=== PATIENT | male | born 1980 | race Caucasian/White ===

== ENCOUNTER → 2022-06-18 07:13 | Outpatient (CLI) | payer OTHER, SELFPAY ==
--- NOTE | ~2022-06-18 | XR_ITS ---
EXAMINATION: XR tibia fibula RT 2V INDICATION: Right leg pain TECHNIQUE: Two views of the right tibia and fibula are obtained on four radiographs. COMPARISON: None available FINDINGS: There is mild soft tissue swelling overlying the distal tibia. There is no fracture. Alignm ent at the ankle and knee is normal. IMPRESSION: 1. No acute osseous abnormality. Reviewed, dictated and finalized at location A.
== END ==
PROVIDERS: PCP Family Medicine; Visit Provider Chiropractor Rehabilitation
DX: M79.661 Pain in right lower leg (principal)
CPT/HCPCS: 73590

== ENCOUNTER 2022-10-02 10:21 | Emergency (ER) | payer OTHER, SELFPAY ==
[2022-10-02 10:42] VITALS: BP 130/96; PULSE 66; RESP 16; TEMP 37.1; O2SAT 99
--- NOTE | 2022-10-02 11:25 | ED.GENADULT ---
HPI - General Adult General Chief complaint: Upper Respiratory Infection Stated complaint: Fever, Fatique Source: patient Mode of arrival: ambulatory Limitations: no limitations History of Present Illness HPI narrative: Patient presents for evaluation of sick symptoms for last 2 days. Symptoms include fever, chills, sweating, body aches, sinus congestion, headache, scratchy throat, cough, nausea and fatigue. No vomiting or diarrhea. No recent sick contacts to his knowledge. He to go home COVID test which was negative. He did receive a flu shot this year. He is concerned about his ability to attend a work related function early next week. He has been taking Tylenol which seems to be helping his symptoms. He does not smoke. No additional complaints or concerns. Related Data Home Medications Medication Instructions Recorded Confirmed pregabalin 75 mg capsule 75 mg PO BID 03/16/21 10/02/22 Allergies Allergy/AdvReac Type Severity Reaction Status Date / Time No Known Allergies Allergy Mild Verified 10/02/22 10:34 Review of Systems Review of Systems: CONSTITUTIONAL: reports fever, chills, sweats, Fatigue. EYES: Denies visual changes, redness, or discharge. ENT: Reports sinus congestion and scratchy throat. CARDIOVASCULAR: Denies chest pain, palpitations, or edema. RESPIRATORY: Reports cough. Denies SOB GASTROINTESTINAL: Reports nausea. Denies abdominal pain, vomiting, or diarrhea. GENITOURINARY: Denies dysuria or hematuria. SKIN: Denies rash or itching. MUSCULOSKELETAL: Reports generalized body aches NEUROLOGIC: Reports headache. Denies numbness, dizziness, or weakness. PSYCHIATRIC: Denies anxiety or depression. REPLACED BY [facility] Past Medical History Medical History (Updated 10/02/22 @ 12:03 by MARCOS Nicole, FRANCESCO) Anxiety Migraine Surgical History Surgical History No pertinent past surgical history Family History Family History Mother Depression Hypertension Father Family history of type 1 diabetes mellitus Other Asthma Diabetes mellitus Family history of arthritis Family history of cardiovascular disease Family history of malignant neoplasm HLD (hyperlipidemia) Heart disease Social History Social History Smoking status: Never smoker Second hand tobacco smoke exposure: No Alcohol intake: current Alcohol use details: social drinker, whiskey or beer Substance use: never Substance use type: does not use 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 HEAD: Normocephalic, atraumatic. EYES: PERRLA and EOMI. ENT: Nares clear, no rhinorrhea or epistaxis. Mucous membranes moist. Oropharynx without tonsillar hypertrophy exudate or other lesions. There is posterior pharyngeal erythema. Bilateral TMs pearly stafford nonbulging NECK: Supple. No adenopathy or masses. No carotid bruits or JVD CHEST: Clear to auscultation. No respiratory distress. No wheezes rales or rhonchi HEART: Regular rate and rhythm. No murmur heard. Normal peripheral pulses. ABDOMEN: Soft, nontender, nondistended, normal active bowel sounds. EXTREMITIES: Normal range of motion. No edema. SKIN: Warm, dry, no rash. NEURO: No focal deficits. Alert and oriented x3. PSYCH: Normal mood and affect. Course Course Emergency Course: this is a 42-year-old male who presented for evaluation of sick symptoms. He taking it COVID test at home which was negative. Flu testing was negative as well. His exam this compatible with acute viral syndrome. Ibuprofen will help with aches and pains. Continue Tylenol as needed. Add Mucinex DM. Increase hydration. Fol
== END 2022-10-02 12:07 | disposition home or self-care (01) ==
PROVIDERS: Emergency Provider Nurse Practitioner; PCP Family Medicine
DX: B34.9 Viral infection, unspecified (principal)
CPT/HCPCS: 87804; 99213; G0463

== ENCOUNTER 2023-10-06 02:03 | Day surgery (SDC) | payer OTHER, SELFPAY ==
[2023-10-04 12:22] VITALS: BMI 23.8
--- NOTE | 2023-10-04 12:30 | PC.NURSE ---
Report to the Outpatient Waiting Room, entrance under the green pavilion located off [facility], at time _1000_ on date _[id number]_. Planned Procedure Time: _1200_. Time changes happen often and if your time is changed the preop area will call you the afternoon before. - You and your visitor will be asked to self-screen and do not enter if you have any COVID symptoms. - A mask is optional within the hospital at this time. Patients may have clear liquids (water, carbonated beverages, clear teas, apple juice) until 3 hours prior to surgery with a maximum of 20 ounces. - No food from midnight until time of surgery Take the following medications with a SIP of water the morning of surgery: __Clonazepam if needed. DO NOT STOP ANY OF YOUR OTHER PRESCRIPTION MEDICATIONS PRIOR TO SURGERY ?EXCEPT THE FOLLOWING Medications to discontinue per physician None Date to take last dose Please no make-up, nail maltese, hairspray, perfume, deodorant, or body powder the day of surgery. No jewelry (including any body piercings) or valuables the day of surgery, leave them at home. Please take a shower or bath the night before, or the morning of, surgery with an antibacterial soap. Wear comfortable, loose fitting clothing. - Jewelry must be removed prior to entering the operating room. Rings and piercings that are not removed may be cut off. - The hospital will not accept responsibility for valuables. - Please leave all valuables, including medications, at home the day of surgery. If you are going home after surgery, a licensed non emergency services ambulance driver must drive you home. - NO public transportation without another adult if you receive anesthesia. - We recommend that an adult stay with you for 24 hours following discharge. - We also recommend that you do not drive, make important decision, drink alcoholic beverages, or take any drugs that were not prescribed by your health care provider for at least 24 hours after your discharge time. Follow any additional instructions given to you from your surgeon. If you or anyone in your household have experienced Covid symptoms in the past week, please notify your surgeon or the nurse liaison at the phone number below for possible testing. Telephone instructions given to _Nathaniel__and asked if any additional questions and then verbalized understanding. Patient advised to call surgeon office or pre surgery nurse liaison [phone] if any additional questions.
--- NOTE | 2023-10-05 12:59 | PM.IMHP ---
H&P: HPI History of Present Illness Date/Time: 10/05/23 12:59 Chief Complaint: Left elbow pain Narrative: 43-year-old with chronic left elbow pain. Unrelieved with injections, therapy, activity modification and medication. MRI shows lateral tendinitis and tendon tear. Presents now for operative treatment. Review of Systems Constitutional: Constitutional: Denies fever(s) Eyes: Eyes: Denies blurry vision ENT: Reports Normal hearing present Cardiovascular: Cardiovascular: Denies chest pain and Denies dyspnea Respiratory: Respiratory: Denies dyspnea and Denies wheezing Gastrointestinal: Gastrointestinal: Denies abdominal pain Genitourinary: Genitourinary: Denies urinary urgency Musculoskeletal: Musculoskeletal: Reports as per HPI and Denies numbness Integumentary/Breasts: Skin/Breast: Denies changing lesions and Denies sores Neurologic: Reports Normal hearing present, Denies behavioral changes, Denies confusion, Denies numbness and Denies convulsions Psychiatric: Psychiatric: Denies behavioral changes, Denies confusion and Denies hallucinations Endocrine: Endocrine: Denies heat intolerance Hematologic/Lymphatic: Hematologic/Lymphatic: Denies easy bleeding Allergic/Immunologic: Allergic/Immunologic: Denies wheezing PMFSH Past Medical History Medical History Anxiety Migraine Surgical History Surgical History No pertinent past surgical history Family History Family History Mother Depression Hypertension Father Family history of type 1 diabetes mellitus Other Asthma Diabetes mellitus Family history of arthritis Family history of cardiovascular disease Family history of malignant neoplasm HLD (hyperlipidemia) Heart disease Social History Social History Smoking status: Never smoker Second hand tobacco smoke exposure: No Alcohol intake: current Drinks per week: 10 Alcohol use details: social drinker, whiskey or beer Substance use: never Substance use type: does not use Lack of Transportation: No Lack of Food: Never True Current Housing: I Have Housing Concerned About Future Housing: No Difficulty Paying Gas/Electric Bills: No Difficulty Paying for Meds: No Currently Unemployed: No Education: Decline to Answer Difficulty w/ Childcare or Family Care: No Living arrangements: with family Occupation/Education: occupation 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 [employer] Gender identity (if verbalized by the patient): Male Spiritual care concerns: No Meds Home Medications and Allergies Home Medications Medication Instructions Recorded Confirmed Type escitalopram oxalate 10 mg tablet See Rx Instructions .Route 11/02/22 10/04/23 Rx .COMPLEX #90 tabs atogepant 60 mg tablet (Qulipta) 60 mg PO HS 04/11/23 10/04/23 History clonazepam 0.5 mg tablet 0.5 mg PO BID anxiety #60 tabs 05/16/23 10/04/23 Rx Allergies Allergy/AdvReac Type Severity Reaction Status Date / Time No Known Allergies Allergy Mild Verified 10/04/23 12:21 Exam Const: General: healthy appearing; No in distress or confusion Orientation/consciousness: oriented to person, oriented to place, oriented to time and No confusion Eyes: Conjunctivae: conjunctivae normal Sclera: sclerae normal Neck: Neck: supple and nontender Resp: Effort & Inspection: normal respiratory effort and no audible wheezes Cardio: Rate: regular rate Rhythm: regular rhythm Skin: General skin exam: no rashes or lesions noted Neuro: General: oriented to person, oriented to place, oriented to time and No confusion Extrem: Right upper extremity: shoulder/upper arm axillary nerve sensory function normal, normal ROM (FF 130, Abd 120, ER 70,
[2023-10-06] VITALS (7 sets, daily range): BP systolic 122–129; BP diastolic 71–93; PULSE 46–62; RESP 12–20; TEMP 36.2–36.3; O2SAT 100
[2023-10-06] MEDS: ACETAMINOPHEN 500 MG TABLET 1000 MG PO (10:32)
[2023-10-06] MEDS: LACTATED RINGERS 1,000 ML 30 ML IV CONT (10:59)
[2023-10-06] MEDS: KETOROLAC 15 MG/ML VIAL (*BKC) IV PUSH (11:01)
--- NOTE | 2023-10-06 11:26 | WPDANESEPPF ---
Anes - Initial Pre Proc Eval Procedure: Operation Date: 10/06/23 12:00 Proposed Procedures p Left Elbow Lateral Release, Possible Extensor Tendon Repair - Kasi Francisco MD Date/Time: 10/06/23 11:26 Surgeon: Kasi Francisco MD Pre Op Diagnosis: Left Elbow Lateral Epicondylitis, (cont) Patient Data Age: 43 Gender: M Height: 1.88 m Weight: 86.2 kg Last Vital Signs Temp 97.1 F L 10/06/23 10:27 Pulse 46 L 10/06/23 10:27 Resp 16 10/06/23 10:27 BP 129/93 H 10/06/23 10:27 Pulse Ox 100 10/06/23 10:27 O2 Del Method Room Air 10/06/23 10:27 Allergies Allergy/AdvReac Type Severity Reaction Status Date / Time No Known Allergies Allergy Mild Verified 10/06/23 10:31 Home Medications Medication Instructions Recorded Confirmed Type escitalopram oxalate 10 mg tablet See Rx Instructions .Route 11/02/22 10/04/23 Rx .COMPLEX #90 tabs atogepant 60 mg tablet (Qulipta) 60 mg PO HS 04/11/23 10/04/23 History clonazepam 0.5 mg tablet 0.5 mg PO BID anxiety #60 tabs 05/16/23 10/04/23 Rx Patient hx anesthesia problems: none Family hx anesthesia problems: none Results Review: All pre-operative results and documents have been reviewed as part of the pre-operative evaluation. [facility] Past Medical History Medical History Anxiety Migraine Surgical History Surgical History No pertinent past surgical history Family History Family History Mother Depression Hypertension Father Family history of type 1 diabetes mellitus Other Asthma Diabetes mellitus Family history of arthritis Family history of cardiovascular disease Family history of malignant neoplasm HLD (hyperlipidemia) Heart disease Social History Social History Smoking status: Never smoker Second hand tobacco smoke exposure: No Alcohol intake: current Drinks per week: 10 Alcohol use details: social drinker, whiskey or beer Substance use: never Substance use type: does not use Lack of Transportation: No Lack of Food: Never True Current Housing: I Have Housing Concerned About Future Housing: No Difficulty Paying Gas/Electric Bills: No Difficulty Paying for Meds: No Currently Unemployed: No Education: Decline to Answer Difficulty w/ Childcare or Family Care: No Living arrangements: with family Occupation/Education: occupation 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 Informed Consent: The patient's anesthetic plan and its attendant risks and benefits were discussed with the patient/family/POA. Questions were solicited and answers provided to the satisfaction of the patient/family/POA.
--- NOTE | 2023-10-06 11:45 | WPDHPUPDATE1 ---
History and Physical Update Update Date/Time: 10/06/23 11:45 History and Physical has been reviewed, including an updated exam of the patient. There are NO changes in the patient's condition. Risks, benefits, and alternatives have been discussed and questions answered. Patient agrees to proceed with procedure.
[2023-10-06] MEDS: ceFAZolin 2 GM/D5W 50 ML 2 GM/50 ML BAG IVPB (11:54)
[2023-10-06] MEDS: BUPivacaine HCL 0.5% 10 ML AMP 20 ML INFILTRATE (12:17)
--- NOTE | 2023-10-06 13:02 | W.PM.PROC2 ---
Procedure Note - Detailed Date of Procedure 10/06/23 Pre-op Diagnosis Left Elbow Lateral Epicondylitis, (cont) Post-op Diagnosis Same Procedure Performed Left elbow lateral epicondylitis release. 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 Unrelieved multiple cortisone injections, therapy, home stretching, elbow strap and activity modification. Presents for operative treatment. Findings Degenerative changes of the lateral elbow and tendon. No tendon tear noted. Description of Procedure Patient identified in the preoperative holding. Informed consent given. Operative extremity marked. Patient received intravenous antibiotics. Patient brought to the operating room where underwent general anesthetic by anesthesia team. Positioned supine on operating room table. Time-out performed confirming the patient, site of the surgery and the plan. Left elbow prepped draped usual sterile surgical fashion using a ChloraPrep skin solution. Hand and arm exsanguinated and proximal arm tourniquet inflated to 250 mmHg. Local anesthetic 0.5% Marcaine plain. Oblique incision over the lateral epicondyle with a 15 blade knife. Hemostasis controlled electrocautery. Dissection carried down to the fascia which was released in line with the skin incision. This allowed exposure of the extensor musculature over the lateral epicondyle. It was noted to be degenerative changes of the extensor musculature tendon without discrete tear. There was degenerative changes the lateral humerus with a bone spur. 15 blade knife used to sharply release the extensor tendon from the lateral epicondyle. Rongeur used to remove the bone spur and smooth the surrounding bone. Wound thoroughly irrigated saline. Hemostasis controlled electrocautery. The fascia was then repaired with 2-0 Vicryl interrupted suture. Subcutaneous tissue and skin repaired with 3-0 Monocryl suture and Steri-Strips. Tourniquet released. Sterile dressing applied. The patient was then woken from anesthesia, extubated and taken to the recovery room in stable condition. All sponge, needle, instrument counts were correct at the end of the case. Estimated Blood Loss 5 Tourniquet Time 30 Drains No Packing No Pathology None sent Complications None Condition Stable Disposition PACU [facility] Billing Surgery - Charge Forward: Surgery Billing ([id number])
== END 2023-10-06 14:37 | disposition home or self-care (01) ==
PROVIDERS: PCP Family Medicine; Visit Provider Orthopaedic Surgery
PROC: (CPT 24358; principal; 2023-10-06 12:00)
DX: M77.12 Lateral epicondylitis, left elbow (principal); F41.9 Anxiety disorder, unspecified
CPT/HCPCS: 24358; A9270; J0690; J1100; J1885; J2250; J2405; J2704; J3010; J7120

== ENCOUNTER → 2023-10-10 08:53 | Outpatient (CLI) | payer OTHER, SELFPAY ==
--- NOTE | ~2023-10-10 | XR_ITS ---
EXAMINATION: XR sacrum coccyx min 2V INDICATION: Sacrococcygeal disorders, not elsewhere classified TECHNIQUE: Three views of the sacrum and coccyx are obtained. COMPARISON: None available FINDINGS: No fracture, dislocation, or subluxation. The bones, soft tissues, and joint spaces are nor mal. IMPRESSION: 1. No acute osseous abnormality. Reviewed, dictated and finalized at location B. 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
== END ==
PROVIDERS: PCP Family Medicine; Visit Provider Family Medicine
DX: M53.3 Sacrococcygeal disorders, not elsewhere classified (principal)
CPT/HCPCS: 72220

== ENCOUNTER 2024-10-08 12:49 | Emergency (ER) | payer OTHER, SELFPAY ==
--- NOTE | ~2024-10-08 | CT_ITS ---
CT abdomen pelvis wo con Ordering provider: Blaze Bae MD History: 44 years Male with . Right flank pain, stone? . Comparison: None. Technique: CT abdomen and pelvis without IV and without oral contrast. Automated exposure control and iterative reconstruction technique were employed. The dose-length product was 432.35 mGy-cm. Findings: VISUALIZED LOWER CHEST: Dependent atelectatic changes. UPPER ABDOMINAL ORGANS: Liver: Normal. Gallbladder: Cholecystectomy. Spleen: Normal. Stomach/duodenum: Normal. Pancreas: Normal. Adrenals: Normal. Kidneys: Normal. PELVIC ORGANS: The bladder is normal. BOWEL AND MESENTERY: Colon: No evidence of diverticulitis. Fecal material is loaded in the colon suggestive of constipatio n. Normal appendix. Small Bowel: Normal. No obstruction. Peritoneum/mesentery: No free air or free fluid. No mesenteric lymphadenopathy. RETROPERITONEUM: Normal aorta. No retroperitoneal lymphadenopathy. MUSCULOSKELETAL: Superficial soft tissues: Small inguinal lymph nodes. Otherwise, The superficial soft tissues are nor mal. Bones: Normal spine. IMPRESSION: 1. No acute abdominal process with no evidence of appendicitis, diverticulitis or intestinal obstruc tion. 2. Constipation. Reviewed, dictated and finalized at location A. PING AND RECEIVING ASSISTANT IMPRESSION: 1. No acute abdominal process with no evidence of appendicitis, diverticulitis or intestinal obstruction. 2. Constipation.
[2024-10-08 12:59] VITALS: BP 157/93; PULSE 73; RESP 18; TEMP 36.9; O2SAT 100
--- NOTE | 2024-10-08 14:36 | ED_ITS ---
HPI - Abdominal Pain General Chief Complaint: Abdominal Pain <Tristan Oh PA-C - Last Filed: 10/08/24 17:53> Stated Complaint: right flank pain <Tristan Oh PA-C - Last Filed: 10/08/24 17:53> Time Seen by Provider: 10/08/24 14:35 <Tristan Oh PA-C - Last Filed: 10/08/24 17:53> Focused HPI: GENERAL: Well-appearing, well-nourished, and in no acute distress. HEAD: Normocephalic, atraumatic. CHEST: Clear to auscultation. No respiratory distress. ABD: HEART: Regular rate and rhythm. NEURO: Alert and oriented x3. Patient screened in triage and initial orders placed. Additional care and disposition to be based upon diagnostic testing and treatment. <Tristan Oh PA-C - Last Filed: 10/08/24 17:53> Focused HPI: 44-year-old male presenting with right flank pain on and off for last 2 weeks, sporadic in nature and occasion rating towards the right groin. Describes sharp waves of pain. Feels like he is urinating less frequent ly and often but denies any hematuria or discharge. No concerns for STDs. Has been taking some Advil with mild improvement in his symptoms. No fever, chills, back pain for chest pain, shortness a breath, lower abdominal pain, nausea vomiting. Was otherwise in his normal state of health bony recent injuries, illnesses. Does state that approximately 2 weeks ago he was out deer hunting and moving dear and felt the pain started the next day and felt like he might have pulled a muscle in this area. GENERAL: Well-appearing, well-nourished, and in no acute distress. HEAD: Normocephalic, atraumatic. CHEST: Clear to auscultation. No respiratory distress. ABD: HEART: Regular rate and rhythm. NEURO: Alert and oriented x3. Patient screened in triage and initial orders placed. Additional care and disposition to be based upon diagnostic testing and treatment. <Blaze Bae MD - Last Filed: 10/08/24 17:49> History of Present Illness HPI narrative: Agree with the HPI as above <Blaze Bae MD - Last Filed: 10/08/24 17:49> Related Data Home Medications: Home Medications Medication Instructions Recorded Confirmed atogepant 60 mg tablet (Qulipta) 60 mg PO HS 04/11/23 09/04/24 <Tristan Oh PA-C - Last Filed: 10/08/24 17:53> Allergies/Adverse Reactions: Allergies Allergy/AdvReac Type Severity Reaction Status Date / Time No Known Allergies Allergy Mild Verified 09/04/24 14:37 <Tristan Oh PA-C - Last Filed: 10/08/24 17:53> Review of Systems Review of Systems: reviewed above <Blaze Bae MD - Last Filed: 10/08/24 17:49> All systems reviewed & are unremarkable except as noted in HPI and below <Blaze Bae MD - Last Filed: 10/08/24 17:49> PMFSH Past Medical History Medical History: Medical History Anxiety Migraine <Tristan Oh PA-C - Last Filed: 10/08/24 17:53> Surgical History Surgical History: Surgical History No pertinent past surgical history <Tristan Oh PA-C - Last Filed: 10/08/24 17:53> Family History Family History: Family History Mother Depression Hypertension Father Family history of type 1 diabetes mellitus Other Asthma Diabetes mellitus Family history of arthritis Family history of cardiovascular disease Family history of malignant neoplasm HLD (hyperlipidemia) Heart disease <Tristan Oh PA-C - Last Filed: 10/08/24 17:53> Social History Social History: Social History Smoking status: Never smoker Second hand tobacco smoke exposure: No Alcohol intake: current Drinks per week: 10 Alcohol use details: social drinker, whiskey or beer Substance use: never Substance use type: does not use Lack of Transportation: No Lack of Food: Never True Current Housing: I Have Housing Concerned About Future Housing: No Difficulty Paying Gas/Electric Bills: No Difficulty Paying for Meds: No Currently Unemployed: No Education: Master's Degree or Higher Difficulty w/ Childcare or Family Care: No Living arrangements: with family Occupation/Education: occupation Additional occupation/education comments: [employer] at [employer] Gender identity (if verbalized by the patient): Male Spiritual care concerns: No <Tristan Oh PA-C - Last Filed: 10/08/24 17:53> Exam Narrative: GENERAL: [Well-appearing, well-nourished, and in no acute distress.] HEAD: [Normocephalic, atraumatic.] EYES: [PERRLA and EOMI.] ENT: Nares clear, no rhinorrhea or epistaxis. Mucous membranes moist. NECK: Supple. CHEST: [Clear to auscultation. No respiratory distress.] HEART: [Regular rate and rhythm]. No murmur heard. [Normal peripheral pulses.] ABDOMEN: [Soft, nondistended], [nontender], [No rigidity or guarding] EXTREMITIES: Normal range of motion. [No edema.] SKIN: Warm, dry, no rash. NEURO: [No focal deficits]. Alert and oriented [x3.] PSYCH: [Normal mood and affect.] <Blaze Bae MD - Last Filed: 10/08/24 17:49> Course Vital Signs Vital signs: Vital Signs Temperature 98.4 F 10/08/24 12:59 Pulse Rate 73 10/08/24 12:59 Respiratory Rate 18 10/08/24 12:59 Blood Pressure 157/93 H 10/08/24 12:59 Pulse Oximetry 100 10/08/24 12:59 Temperature 98.1 F 10/08/24 15:47 Pulse Rate 56 L 10/08/24 17:22 Respiratory Rate 15 10/08/24 17:22 Blood Pressure 140/86 10/08/24 17:22 Pulse Oximetry 100 10/08/24 17:22 Oxygen Delivery Room Air 10/08/24 16:17 <FLOR Pryor Last Filed: 10/08/24 17:53> Vital Signs Temperature 98.4 F 10/08/24 12:59 Pulse Rate 73 10/08/24 12:59 Respiratory Rate 18 10/08/24 12:59 Blood Pressure 157/93 H 10/08/24 12:59 Pulse Oximetry 100 10/08/24 12:59 Temperature 98.1 F 10/08/24 15:47 Pulse Rate 56 L 10/08/24 17:22 Respiratory Rate 15 10/08/24 17:22 Blood Pressure 140/86 10/08/24 17:22 Pulse Oximetry 100 10/08/24 17:22 Oxygen Delivery Room Air 10/08/24 16:17 <Blaze Bae MD - Last Filed: 10/08/24 17:49> MDM - Abdominal Pain MDM Narrative Medical decision making narrative: 44-year-old otherwise healthy male presenting to the emergency depart with right flank pain intermittent for last 2 weeks. He thought he might have pulled a muscle wall moving deer while hunting 2 weeks ago. Has been having some intermittent sharp pain in this area radiating towards his right upper flank towards his right groin. Denies any history kidney stones. Has been taking some Advil with improvement in symptoms. Knows that he has not been urinating as frequently but denies any hematuria, dysuria, concerns for STDs or any discharge. Reassuring vital signs without any significant blood pressure concerns, no tachycardia, fever, hypoxia. Overall very well-appearing with reassuring examination without any tenderness in the abdomen, pelvis, flank. Negative Duncan sign. Given patient's vague complaints and of right-sided flank pain as well as the potential urinating issues going this frequently considerations presently for a kidney stone versus renal colic versus less likely urinary tract or kidney infection. Musculoskeletal strain is more likely given the onset of symptoms after moving heavy deer. workup was ordered incl uding a CBC, CMP, urinalysis and a CT scan without contrast. He was given symptomatic control with a dose of 0.5 mg Dilaudid, Zofran and fluid bolus. Workup revealed no leukocytosis or significant anemia. Normal platelets. Normal electrolyte profile, normal renal function panel. Total bilirubin very mildly elevated but otherwise unremarkable LFTs. Urinalysis without any signs of infection or blood. CT scan was independently reviewed by myself and also interpreted by Radiology. No acute intra-abdominal process such as appendicitis diverticulitis or any obstruction. No kidney stones were identified. He does have some constipation but likely not contributing to his symptoms. Patient was re-evaluated had complete symptomatic resolution will here in the emergency department. At this point given his unremarkable workup and symptom resolution I believe he can be safely discharged home with outpatient follow-up. Will send home with a short course of Toradol for any remaining pain and was given return precautions which patient verbalized understanding. Stable for discharge. <Blaze Bae MD - Last Filed: 10/08/24 17:49> Differential Diagnosis Differential diagnosis: Likely abdominal pain, acute appendicitis, calculus of kidney, constipation, diverticulitis, gastroenteritis, pancreatitis and small bowel obstruction <Blaze Bae MD - Last Filed: 10/08/24 17:49> Medical Records Attestation: I reviewed the patient's medical records. <Blaze Bae MD - Last Filed: 10/08/24 17:49> Lab Data Attestation: I reviewed the patient's lab results. <Blaze Bae MD - Last Filed: 10/08/24 17:49> Result diagrams: 10/08/24 14:49 10/08/24 14:49 <Tristan Oh PA-C - Last Filed: 10/08/24 17:53> Labs: Lab Results 10/08/24 Range/Units 14:49 WBC 6.5 (4.5-10.0) K/mm3 RBC 4.48 L (4.6-6.20) M/mm3 Hgb 13.7 L (14.0-18.0) g/dL Hct 39.1 L (42.0-52.0) % MCV 87.3 (80-100) fl MCH 30.6 (26-34) pg MCHC 35.0 (32-36) g/dl RDW 12.1 (11.5-14.5) % Plt Count 194 (150-375) k/mm3 MPV 10.4 (7.4-10.4) fl Immature Gran % (Auto) 0.3 (0-0.5) % Neut % (Auto) 62.0 (45.5-73.1) % Lymph % (Auto) 25.4 (18.3-44.2) % Gilliam % (Auto) 9.3 H (2.6-8.5) % Eos % (Auto) 2.5 (0-4.4) % Baso % (Auto) 0.5 (0.2-1.2) % Lymph # (Auto) 1.64 (0.9-3.2) K/mm3 Gilliam # (Auto) 0.6 (0.1-0.6) K/mm3 Eos # (Auto) 0.2 (0-0.3) K/mm3 Baso # (Auto) 0.0 (0.0-0.1) K/mm3 Abs Immat Gran (auto) 0.02 (0.00-0.031) K/mm3 Absolute Neuts (auto) 4.0 (1.3-6.7) K/mm3 Absolute Nucleated RBC 0.000 (0.0-0.012) K/mm3 Nucleated RBC % 0.0 (0.0-0.2) % Sodium 139 (137-145) mmol/L Potassium 3.9 (3.4-5.0) mmol/L Chloride 101 (98-107) mmol/L Carbon Dioxide 33 H (22-30) mmol/L Anion Gap 5 (4-12) mmol/L BUN 23 H (9-20) mg/dL Creatinine 1.20 (0.7-1.3) mg/dL Estim Creat Clear Calc 83 ml/min Estimated GFR > 60 (59 - ) Glucose 82 (65-110) mg/dL Calcium 9.5 (8.4-10.2) mg/dL Total Bilirubin 1.6 H (0.2-1.3) mg/dL AST 29 (17-59) U/L ALT 15 (6-50) U/L Alkaline Phosphatase 49 (38-126) U/L Total Protein 8.0 (6.3-8.2) g/dL Albumin 4.7 (3.5-5.1) g/dL Lipase 59 (23-300) U/L Urine Color Yellow (Yellow) Urine Appearance Cloudy H (Clear) Urine pH 7.0 (5.0-9.0) Ur Specific [place] 1.024 (1.001-1.035) Urine Protein Negative (Negative) mg/dL Urine Glucose (UA) Negative (Negative) mg/dL Urine Ketones Negative (Negative) mg/dL Ur Blood (Man) Negative (Negative) Urine Nitrate Negative (Negative) Urine Bilirubin Negative (Negative) Urine Urobilinogen 2.0 H (<2.0) mg/dL Leukocyte Esterase Rfl Negative (Negative) ASUNCION/UL Urine RBC 0-2 (0-2) /hpf Urine WBC 0-5 (0-3) /hpf Ur Squamous Epith Cells None seen (Few) /hpf Urine Bacteria None seen /hpf Urine Casts 0-2 <Tristan Oh PA-C - Last Filed: 10/08/24 17:53> Lab Results 10/08/24 Range/Units 14:49 WBC 6.5 (4.5-10.0) K/mm3 RBC 4.48 L (4.6-6.20) M/mm3 Hgb 13.7 L (14.0-18.0) g/dL Hct 39.1 L (42.0-52.0) % MCV 87.3 (80-100) fl MCH 30.6 (26-34) pg MCHC 35.0 (32-36) g/dl RDW 12.1 (11.5-14.5) % Plt Count 194 (150-375) k/mm3 MPV 10.4 (7.4-10.4) fl Immature Gran % (Auto) 0.3 (0-0.5) % Neut % (Auto) 62.0 (45.5-73.1) % Lymph % (Auto) 25.4 (18.3-44.2) % Gilliam % (Auto) 9.3 H (2.6-8.5) % Eos % (Auto) 2.5 (0-4.4) % Baso % (Auto) 0.5 (0.2-1.2) % Lymph # (Auto) 1.64 (0.9-3.2) K/mm3 Gilliam # (Auto) 0.6 (0.1-0.6) K/mm3 Eos # (Auto) 0.2 (0-0.3) K/mm3 Baso # (Auto) 0.0 (0.0-0.1) K/mm3 Abs Immat Gran (auto) 0.02 (0.00-0.031) K/mm3 Absolute Neuts (auto) 4.0 (1.3-6.7) K/mm3 Absolute Nucleated RBC 0.000 (0.0-0.012) K/mm3 Nucleated RBC % 0.0 (0.0-0.2) % Sodium 139 (137-145) mmol/L Potassium 3.9 (3.4-5.0) mmol/L Chloride 101 (98-107) mmol/L Carbon Dioxide 33 H (22-30) mmol/L Anion Gap 5 (4-12) mmol/L BUN 23 H (9-20) mg/dL Creatinine 1.20 (0.7-1.3) mg/dL Estim Creat Clear Calc 83 ml/min Estimated GFR > 60 (59 - ) Glucose 82 (65-110) mg/dL Calcium 9.5 (8.4-10.2) mg/dL Total Bilirubin 1.6 H (0.2-1.3) mg/dL AST 29 (17-59) U/L ALT 15 (6-50) U/L Alkaline Phosphatase 49 (38-126) U/L Total Protein 8.0 (6.3-8.2) g/dL Albumin 4.7 (3.5-5.1) g/dL Lipase 59 (23-300) U/L Urine Color Yellow (Yellow) Urine Appearance Cloudy H (Clear) Urine pH 7.0 (5.0-9.0) Ur Specific [place] 1.024 (1.001-1.035) Urine Protein Negative (Negative) mg/dL Urine Glucose (UA) Negative (Negative) mg/dL Urine Ketones Negative (Negative) mg/dL Ur Blood (Man) Negative (Negative) Urine Nitrate Negative (Negative) Urine Bilirubin Negative (Negative) Urine Urobilinogen 2.0 H (<2.0) mg/dL Leukocyte Esterase Rfl Negative (Negative) ASUNCION/UL Urine RBC 0-2 (0-2) /hpf Urine WBC 0-5 (0-3) /hpf Ur Squamous Epith Cells None seen (Few) /hpf Urine Bacteria None seen /hpf Urine Casts 0-2 <Blaze Bae MD - Last Filed: 10/08/24 17:49> Imaging Data Attestation: I personally reviewed and interpreted this imaging study as follows: <Blaze Bae MD - Last Filed: 10/08/24 17:49> My impression: Impressions Abdomen/Pelvis CT 10/08/24 16:54 IMPRESSION: 1. No acute abdominal process with no evidence of appendicitis, diverticulitis or intestinal obstruction. 2. Constipation. <Blaze Bae MD - Last Filed: 10/08/24 17:49> Radiologist's impression: ITS Impressions Abdomen/Pelvis CT 10/08/24 16:54 IMPRESSION: 1. No acute abdominal process with no evidence of appendicitis, diverticulitis or intestinal obstruction. 2. Constipation. <Tristan Oh PA-C - Last Filed: 10/08/24 17:53> ITS Impressions Abdomen/Pelvis CT 10/08/24 16:54 IMPRESSION: 1. No acute abdominal process with no evidence of appendicitis, diverticulitis or intestinal obstruction. 2. Constipation. <Blaze Bae MD - Last Filed: 10/08/24 17:49> Discharge Plan Discharge Clinical Impression: Acute right flank pain <Tristan Oh PA-C - Last Filed: 10/08/24 17:53> Patient Disposition: Home, Self-Care <Tristan Oh PA-C - Last Filed: 10/08/24 17:53> Condition: Stable <Tristan Oh PA-C - Last Filed: 10/08/24 17:53> Instructions: Antibiotic Form, Flank Pain (ED) <Tristan Oh PA-C - Last Filed: 10/08/24 17:53> Additional Instructions: your workup today was reassuring, no acute intra-abdominal or flank process. We will send you home with some pain medications for any breakthrough pain but likely symptoms are related to musculoskeletal injury. Follow-up with your regular primary doctor outpatient or return with any new or worsening concerns at any time. <Tristan Oh PA-C - Last Filed: 10/08/24 17:53> Prescriptions: New ketorolac 10 mg tablet 10 mg PO Q8H PRN (Reason: pain) 5 Days Qty: 20 0RF Rx Instructions: maximum total duration of 5 days from all oral, intranasal, or parenteral formulations No Action Qulipta 60 mg tablet 60 mg PO HS omeprazole 20 mg capsule,delayed release(DR/EC) 20 mg PO DAILY Qty: 30 0RF clonazepam 0.5 mg tablet 0.5 mg PO BID Qty: 60 4RF escitalopram oxalate 10 mg tablet See Rx Instructions .ROUTE .COMPLEX Qty: 90 1RF Dose Instruction: TAKE 1 TABLET BY MOUTH DAILY Rx Instructions: TAKE 1 TABLET BY MOUTH DAILY <Tristan Oh PA-C - Last Filed: 10/08/24 17:53> Follow-up/Referrals: Pacheco Youssef DO [Primary Care Provider] - <Tristan Oh PA-C - Last Filed: 10/08/24 17:53> Time of Disposition: 17:48 <Tristan Oh PA-C - Last Filed: 10/08/24 17:53> 17:48 <Blaze Bae MD - Last Filed: 10/08/24 17:49>
[2024-10-08 14:59] LABS: Basophils Percent Auto 0.5 % (0.2-1.2); Eosinophils Absolute Auto 0.2 K/mm3 (0-0.3); Eosinophils Percent Auto 2.5 % (0-4.4); Hematocrit 39.1 % (42.0-52.0); Hemoglobin 13.7 g/dL (14.0-18.0); Immature Granulocyte Absolute 0.02 K/mm3 (0.00-0.031); Immature Granulocyte Percent A 0.3 % (0-0.5); Lymphocytes Absolute Auto 1.64 K/mm3 (0.9-3.2); Lymphocytes Percent Auto 25.4 % (18.3-44.2); Mean Corpuscular Hemoglobin 30.6 pg (26-34); Mean Corpuscular Volume 87.3 fl (80-100); Mean Platelet Volume 10.4 fl (7.4-10.4); Monocytes Absolute Auto 0.6 K/mm3 (0.1-0.6); Monocytes Percent Auto 9.3 % (2.6-8.5); Platelet Count Result 194 k/mm3 (150-375); Red Blood Count 4.48 M/mm3 (4.6-6.20); Red Cell Distribution Width 12.1 % (11.5-14.5); White Blood Count 6.5 K/mm3 (4.5-10.0)
[2024-10-08 15:10] LABS: Add Urine Microscopic? YES; Alanine Aminotransferase 15 U/L (6-50); Albumin Level 4.7 g/dL (3.5-5.1); Alkaline Phosphatase 49 U/L (38-126); Anion Gap 5 mmol/L (4-12); Appearance Urine Cloudy (Clear); Aspartate Amino Transferase 29 U/L (17-59); Bacteria Urine None Seen /hpf; Bilirubin Urine Negative (Negative); Bilirubin,Total 1.6 mg/dL (0.2-1.3); Blood Urea Nitrogen 23 mg/dL (9-20); Blood Urine Negative (Negative); Calcium 9.5 mg/dL (8.4-10.2); Carbon Dioxide 33 mmol/L (22-30); Chloride 101 mmol/L (98-107); Color Urine Yellow (Yellow); Estimated CRCL calculation 83 ml/min; Estimated Glomerular Filt Rate > 60; Glucose 82 mg/dL (65-110); Glucose Urine UA Negative (Negative); Ketones Urine Negative (Negative); Leukocyte Esterase Ur Negative LEU/UL (Negative); Lipase 59 U/L (23-300); Nitrate Urine Negative (Negative); Non Pathogenic Casts 0-2; Potassium 3.9 mmol/L (3.4-5.0); Protein Urine Negative (Negative); RBC Urine 0-2 /hpf (0-2); Sodium 139 mmol/L (137-145); Specific Grav Ur 1.024 (1.001-1.035); Squamous Epithelial Cell Urine None Seen /hpf (Few); WBC Urine 0-5 /hpf (0-3)
[2024-10-08 15:47] VITALS: BP 131/88; PULSE 62; RESP 18; TEMP 36.7; O2SAT 100
[2024-10-08 16:17] VITALS: BP 132/85; PULSE 63; RESP 17; O2SAT 100
[2024-10-08] MEDS: LACTATED RINGERS 1,000 ML 999 ML IV CONT (16:37)
[2024-10-08] MEDS: ONDANSETRON INJ 4 MG/2 ML VIAL IV PUSH (16:38)
[2024-10-08] MEDS: HYDROmorphone HCL INJ (*CRX) 1 MG/ML SYR 0.5 MG IV PUSH (16:39)
[2024-10-08 16:40] VITALS: BP 133/90; PULSE 60; RESP 15; O2SAT 100
[2024-10-08 17:22] VITALS: BP 140/86; PULSE 56; RESP 15; O2SAT 100
[2024-10-08 18:33] VITALS: BP 132/90; PULSE 57; RESP 17; TEMP 36.4; O2SAT 100
== END 2024-10-08 18:34 | disposition home or self-care (01) ==
PROVIDERS: Physician Assistant; Emergency Provider Student in an Organized Health Care Education/Training Program; PCP Family Medicine
DX: R10.9 Unspecified abdominal pain (principal); K59.00 Constipation, unspecified
CPT/HCPCS: 36415; 74176; 80053; 81001; 83690; 85025; 96361; 96374; 96375; 99284; J1171; J2405; J7120